=== PATIENT | male | born 1990 | race Caucasian/White ===

== ENCOUNTER 2018-05-18 19:31 | Emergency (ER) | payer OTHER ==
--- NOTE | 2018-05-18 19:36 | ER Report ---
History and Physical Time Seen By MD: 19:51 HPI/ROS CHIEF COMPLAINT: Right hand laceration HISTORY OF PRESENT ILLNESS: 27-year-old male presents ambulatory to the ER with a laceration to the dorsal aspect of his hand while he was at work. Patient was serving ice cream and the metal band around the rim at the top of the ice cream storage carton sliced into the back of his head. He is superficial laceration on the dorsal aspect transversely that extends into the subcutaneous. Distal tendon and neurovascular function appears intact. Patient states his last tetanus shots greater than 10 years. Allergies: Coded Allergies: No Known Drug Allergies (Unverified , 05/18/18) Home Meds No Active Prescriptions or Reported Meds Reviewed Nurses Notes: Yes Old Medical Records Reviewed: Yes Constitutional Vital Sign - Last 24 Hours 05/18/18 05/18/18 19:53 20:24 Temp 98.0 Pulse 81 86 Resp 14 16 B/P (MAP) 140/116 141/100 (114) Pulse Ox 95 91 O2 Delivery Room Air Room Air Physical Exam General appearance: Alert no distress. Respiratory: Chest is non tender, lungs are clear to auscultation. Cardiac: Regular rate and rhythm Extremities: The right hand shows a transverse laceration in the mid dorsal aspect over the lateral aspect of the hand, 2.6 cm in length. All distal neurovascular tendon functions intact. Wound is gapped open and there are no deep injuries noted. DIFFERENTIAL DIAGNOSIS: After history and physical exam differential diagnosis was considered for head laceration, tendon laceration, nerve laceration, Medical Decision Making ED Course/Re-evaluation ED Course Patient was admitted to an examination room. H&P was done. The differential diagnoses was considered. On clinical examination. Patient is transverse superficial laceration of the dorsal aspect of the hand. It's infiltrated with lidocaine 1% with epinephrine. The wound is cleaned and prepped in the usual manner. The wound was approximated as noted below. Wound care was discussed, suture removal will be in 10 days. Procedure: Laceration repair. Verbal consent was obtained from the patient. The 2.6 cm laceration on the dorsal right hand on the lateral aspect was anesthetized in the usual fashion. The wound was scrubbed, draped and explored to its base with a gloved finger. There were no deep structures involved. No tendon injury was identified. The wound was repaired with 5-0 Prolene 3 sutures. The wound repair was simple. The procedure was performed by myself. Decision to Disposition Date: May 18, 2018 Decision to Disposition Time: 20:15 Depart Departure Latest Vital Signs Vital Signs Date Time Temp Pulse Resp B/P (MAP) Pulse Ox O2 Delivery O2 Flow Rate FiO2 05/18/18 20:24 86 16 141/100 (114) 91 Room Air 05/18/18 19:53 98.0 Impression: Primary Impression: Laceration of right hand Condition: Improved Disposition: HOME OR SELF-CARE New Scripts No Active Prescriptions or Reported Meds Patient Instructions: Hand Laceration Additional Instructions: Perform daily wound care Have your stitches removed in 10 days Problem Qualifiers Primary Impression: Laceration of right hand Encounter type: initial encounter Foreign body presence: without foreign body Qualified Codes: S61.411A - Laceration without foreign body of right hand, initial encounter FABRICE SONG DO May 18, 2018 19:36
[2018-05-18] MEDS ORDERED: DIPHTH/TETANUS/ACEL. PERTUSSIS IM ONLY ONE (19:55)
[2018-05-18 20:24] VITALS: BP 141/100
== END 2018-05-18 20:26 | disposition home or self-care (01) ==
LOC: ER 20:12
DX: S61.411A Laceration without foreign body of right hand, initial encounter (principal)
CPT/HCPCS: 90471; 90715; 99283